=== PATIENT | male | born 1935 | race Caucasian/White ===

== ENCOUNTER 2016-09-06 07:42 | Day surgery (SDC) | payer OTHER ==
[2016-09-06] MEDS ORDERED: LIDOCAINE 1% 5 ML SDV ONE (08:46)
[2016-09-06] MEDS ORDERED: LIDOCAINE 1% 2 ML INJ ID PRN (09:01)
[2016-09-06] MEDS ORDERED: MIDAZOLAM 2 MG/2 ML VIAL ONE (09:06)
[2016-09-06] MEDS ORDERED: fentaNYL 100 MCG/2 ML INJ ONE (09:07)
[2016-09-06] MEDS ORDERED: PROPOFOL 200 MG/20 ML VIAL ONE (09:07)
[2016-09-06] MEDS ORDERED: LIDOCAINE 2% 5 ML SDV ONE (09:08)
[2016-09-06] MEDS ORDERED: LR 1,000 ML IV SCH (09:30)
[2016-09-06 09:32] LABS: INR 1.28 (0.83-1.16)
--- NOTE | 2016-09-06 10:24 | GPN ---
PROCEDURE: Esophagogastroduodenoscopy with Savary dilation of the esophagus. PREOPERATIVE DIAGNOSIS: Dysphagia in the setting of gastroesophageal reflux disease. POSTOPERATIVE DIAGNOSIS: Narrowing of the cervical esophageal passage consistent with stricture, di lated to 18 mm with Savary dilators. CLINICAL HISTORY/INDICATIONS: The patient is an 81-year-old gentleman with paroxysmal atrial fibril lation on chronic Coumadin therapy as well as hypertension, hyperlipidemia, and chronic GERD. He is set up for EGD today due to progressively more severe dysphagia to solids over the last 3 months. PERMIT: The patient was informed of the indications for this procedure, risks and benefits of the p rocedure, and IV general anesthesia outlined. Informed consent was obtained. PREOPERATIVE MEDICATIONS: IV general anesthesia per Dr. Reji Mota. PROCEDURE FINDINGS: GIF-180 video endoscope was inserted down into the oropharynx and was passed wi th moderate difficulty into the cervical esophagus due to angulation at the upper esophageal sphinct er and mild stricture. The scope could be passed with the aid of a guidewire into the esophagus. T he body of the esophagus and distal esophagus appeared normal. There was no evidence of distal esop hageal stricture. The cardia, fundus, body, and antrum of the stomach appeared normal, both on fron t view and retroflexed position of the instrument. Pyloric channel, duodenal bulb sweep were normal to the 2nd portion of the duodenum. The scope was slowly withdrawn into the stomach, and a Savary guidewire was placed into the antrum and retained as the scope was removed. Over this guidewire, a 15 mm and 18 mm Savary dilator was passed across the upper esophageal sphincter and lower esophageal sphincter. There was no resistance with the 15 mm dilator. There was mild resistance with the 18 mm dilator. There was no blood staining of the dilators on withdrawal. The patient tolerated the p rocedure well and was sent to the recovery room in satisfactory condition. IMPRESSION: 1. Dysphagia with narrowing of the upper esophageal sphincter/passage, dilated to 18 mm today. 2. No evidence of Conti esophagus or esophageal ulcers. 3. No evidence of distal esophageal stricture. RECOMMENDATIONS: 1. Continue omeprazole daily. 2. Anti-reflux lifestyle modifications chronically. 3. If the patient has no improvement of his dysphagia after this procedure, would then recommend tr iple phase cine esophagram to review for evidence of Zenker diverticulum or esophageal dysmotility. /[id number]/MODL
== END 2016-09-06 10:50 | disposition home health service (06) ==
LOC: FSGY 07:42
PROVIDERS: ATTEND Internal Medicine Gastroenterology
PROC: 0D718ZZ Dilation of Upper Esophagus, Via Natural or Artificial Opening Endoscopic (ICD-10-PCS; principal; 2016-09-06 09:00)
DX: K22.2 Esophageal obstruction (principal); R13.10 Dysphagia, unspecified; K21.9 Gastro-esophageal reflux disease without esophagitis
CPT/HCPCS: J2250; J2704; J3010

== ENCOUNTER → 2017-05-04 | Outpatient (CLI) | payer OTHER | LOC: FIMAGING 10:02 | PROVIDERS: ATTEND Internal Medicine Cardiovascular Disease | DX: I48.0 Paroxysmal atrial fibrillation (principal); I51.7 Cardiomegaly ==

== ENCOUNTER 2017-05-19 14:04 | Emergency (ER) | payer OTHER ==
[2017-05-19 14:10] VITALS: RESP 16; TEMP 97.9
--- NOTE | 2017-05-19 16:02 | EDPHY ---
H & P Stated Complaint: woke up with pain and swelling to right calf. Time Seen by Provider: 05/19/17 16:02 HPI/ROS: CHIEF COMPLAINT: Right calf pain HISTORY OF PRESENT ILLNESS: The patient presents to the ED with complaints of acute right calf pain that began earlier today. The patient has a history of atrial fibrillation and is currently anticoagulated. He recently had his Coumadin level adjusted. Patient denies any chest pain or shortness of breath. He denies any numbness or weakness. The patient denies known history of trauma. The patient denies any additional complaints such as fever, cough, congestion, abdominal pain, melena or difficulty breathing. The patient reports his pain is currently mild in nature. It was moderate earlier today. REVIEW OF SYSTEMS: A comprehensive 10 point review of systems is otherwise negative aside from elements mentioned in the history of present illness. Source: Patient - Personal History Current Tetanus Diphtheria and Acellular Pertussis (TDAP): Yes Tetanus Vaccine Date: less than 10 years - Medical/Surgical History Hx Asthma: Yes Hx Chronic Respiratory Disease: No Hx Diabetes: No Hx Cardiac Disease: Yes Hx Renal Disease: No Hx Cirrhosis: No Hx Alcoholism: No Hx HIV/AIDS: No Hx Splenectomy or Spleen Trauma: No Other PMH: Glaucoma, Afib, Hernia surgery, Cataract removal bilateral, Retinal repair bilateral, tonsillectomy, Hemorrhoidectomy - Social History Smoking Status: Former smoker - Physical Exam Exam: General Appearance: Alert, no distress Eyes: Pupils equal and round no pallor or injection ENT, Mouth: Mucous membranes moist Respiratory: There are no retractions, lungs are clear to auscultation Cardiovascular: Regular rate and rhythm Gastrointestinal: Abdomen is soft and nontender, no masses, bowel sounds normal Neurological: 5/5 strength all 4 extremities Skin: Warm and dry, no rashes Musculoskeletal: Normal range of motion noted bilateral lower extremities Extremities: Tenderness to palpation right calf, supple, no compartment syndrome, 2+ dorsalis pedis and posterior tibial pulse Constitutional: Initial Vital Signs Temperature (C) 36.6 C 05/19/17 14:05 Heart Rate 83 05/19/17 14:05 Respiratory Rate 16 05/19/17 14:05 Blood Pressure 127/83 H 05/19/17 14:05 O2 Sat (%) 95 05/19/17 14:05 O2 Delivery Mode Room Air Allergies/Adverse Reactions: Penicillins Allergy (Severe, Verified 09/02/16 13:48) LEP SWELLING/HIVES PEANUTS Allergy (Severe, Uncoded 03/19/11 15:36) Anaphylaxis Home Medications: Medication Instructions Recorded Albuterol [Proventil Inhaler HFA 1 - 2 puffs IH Q4H PRN 01/16/14 (*)] Atorvastatin Calcium [Lipitor 20 20 mg PO HS 01/16/14 mg (*)] Brimonidine/Timolol [Combigan (*)] 1 drop EACHEYE BID 01/16/14 EPINEPHrine [Epipen 0.3 MG] 0.3 mg IM ONCE PRN 01/16/14 Digoxin [Lanoxin 0.125 mg] 0.125 mg PO DAILY10 #30 tab 01/21/14 Warfarin Sodium [Coumadin 5MG (*)] 5 mg PO DAILY16 #30 tab 01/21/14 Mometasone Furoate Nasal [Nasonex] 1 sprays NASAL DAILY PRN 01/23/14 Herbals/Supplements -Info Only 09/02/16 Omeprazole 09/02/16 Medical Decision Making - Diagnostics Imaging Results: Imaging Impressions Extremity Venous Study 05/19/17 14:59 Impression: 1. There is no sonographic evidence of deep or superficial vein thrombosis in the right lower extremity. 2. There is a an 8.7 cm complex collection in the mid-calf, probably representing a localized hematoma (given the patient's history of anticoagulant therapy), however continued clinical correlation and follow-up are recommended. Findings were discussed with MDAHURI ROSEN MD at 16:17, on 05/19/2017. She will convey the information to Dr. Live Vasquez. ED Course/Re-evaluation: The patient presents to the ED for evaluation of atraumatic right calf pain. The patient was taken for an ultrasound which demonstrates no evidence of a DVT but does demonstrate a subcutaneous hematoma measuring 5 x 8 cm. The patient is noted to be neurologically intact. He has a 2+ dorsalis pedis and posterior tibial pulse. The patient has no clinical evidence of a compartment syndrome. The patient is INR is 3.4. The patient will be instructed to hold his next 2 doses of Coumadin. He should then resume at his regular dose. The patient should have an INR checked performed at 5 days. Differential Diagnosis: Differential diagnosis considered includes hematoma, DVT, arterial thrombosis, compartment syndrome, supratherapeutic anticoagulation - Data Points Laboratory Results: 05/19/17 14:26 PT 35.6 SEC H SEC (12.0-15.0) INR 3.49 H (0.83-1.16) Departure - Departure Disposition: Home, Routine, Self-Care Clinical Impression: Hematoma of right lower extremity Condition: Good Instructions: Contusion in Adults (ED) Additional Instructions: 1. Ice as needed. 2. Tylenol as needed for pain. 3. Return to the ED for markedly worsening pain, swelling, numbness or weakness as this may be the sign of a progressing hematoma and development of a acute surgical problem. 4. Your INR was elevated at 3.5. Please hold your next 2 doses of Coumadin. Please have your INR rechecked on Tuesday of next week. Referrals: ALDO WEISS [Primary Care Provider] - As per Instructions
[2017-05-19 16:42] LABS: INR 3.49 (0.83-1.16); PROTIME(PATIENT) 35.6 SEC (12.0-15.0)
[2017-05-19 17:21] VITALS: BP 116/85; PULSE 68; O2SAT 97
== END 2017-05-19 17:20 | disposition home or self-care (01) ==
DX: M79.81 Nontraumatic hematoma of soft tissue (principal); J45.909 Unspecified asthma, uncomplicated; Z79.01 Long term (current) use of anticoagulants; Z87.891 Personal history of nicotine dependence; Z91.010 Allergy to peanuts

== ENCOUNTER → 2017-06-30 | Outpatient (CLI) | payer OTHER | LOC: BHFA 09:30 | PROVIDERS: ATTEND Internal Medicine Cardiovascular Disease | DX: I48.91 Unspecified atrial fibrillation (principal); Z79.899 Other long term (current) drug therapy ==

== ENCOUNTER 2018-03-14 12:15 | Inpatient (IN) | payer OTHER ==
--- NOTE | 2018-03-30 01:30 | GHP ---
DATE OF ADMISSION: 04/25/2018 He will be an a.m. admission for surgery at [facility] on April 25, 2018. PROBLEM: Right knee severe degenerative arthritis. HISTORY OF PRESENT ILLNESS: The patient is an 82-year-old man admitted for a right total knee arthro plasty. He has been aware of progressive trouble in his knee for a long time. Twenty years ago, bridger morrison told him he was going to need a total knee replacement. He has gradually had more pain. His a ctivities are limited. It is painful to walk. He has had some cortisone injections over the last fe w years, but the benefit has been temporary. He is now having significant pain that is affecting his activities of daily living. He has failed nonsurgical treatment. PAST MEDICAL HISTORY: He has atrial fibrillation. He is chronically anticoagulated with Coumadin. He is also treated for elevated cholesterol. He has a history of esophageal stricture and has had se veral dilatations. He has known sleep apnea. He was recently prescribed a CPAP machine, but he has been unable to tolerate it. He notes nocturia and occasional urinary incontinence. He has atrial fi brillation but no known history of ischemic coronary artery disease. No history of hepatitis, DVT, M RSA staph infections, or bleeding problems. CURRENT MEDICATIONS: Coumadin 5 mg 5 days a week and 10 mg on Tuesday and Tuesday. He is on atorvast atin 10 mg per day for cholesterol. Amiodarone 200 mg per day. He uses Combigan eyedrops for glauco ma. DRUG ALLERGIES: He states that he is allergic to penicillin. He developed a hives reaction 60 years ago. He is also allergic to peanuts. Metal allergy: None. Latex allergy: None. SOCIAL HISTORY: The patient is . He is retired. He does not smoke cigarettes and occasional ly drinks alcohol. PHYSICAL EXAMINATION: GENERAL: He is a tall, thin, alert, healthy-appearing elderly man. Height 6 feet 4 inches. Weight 180 pounds. BMI 21.9. EYES: Conjunctivae and sclerae are clear. Pupils are round and reactive. MOUTH: Good oral hygiene. No loose teeth. CHEST: Clear. HEART: Irregular rhythm. EXTREMITIES: Pertinent findings are limited to his right knee. He has a 5-degree flexion c ontracture and further flexion to 120 degrees. He has a small effusion. There are palpable osteophy maryjane along the medial border of the knee. He has mild pseudolaxity of his medial collateral ligament, but his ligaments are otherwise stable. IMAGING: Films show severe medial compartment degenerative arthritis. He is bone on bone. His femu r is subluxed medially on the tibial plateau. Varus alignment is present. IMPRESSION ON ADMISSION: 1. Right knee advanced medial compartment degenerative arthritis with varus deformity. He is prepar ed for right total knee arthroplasty. 2. Atrial fibrillation. He is on Coumadin. 3. Treatment for glaucoma. 4. Treatment for elevated cholesterol. 5. History of esophageal stricture. 6. History of nocturia and occasional urinary incontinence. 7. Known sleep apnea. PLAN: He will undergo a right total knee arthroplasty using the Graeme robot. The surgery has been de scribed to him, including the risks, complications, expectations, and recovery time. I have stressed the importance of postoperative physical therapy. I have advised him that approximately 85% of peop le get a very good result with a total knee replacement, but a small percentage of people do not. He is also at risk for medical problems such as heart attack, stroke, or pneumonia. He will stop his Coumadin 5 days before surgery. I will resume it after surgery. All his questions have been answered, and he consents to surgery. /[id number]/MODL
[2018-04-25] MEDS ORDERED: TRANEXAMIC ACID 3,000 MG in NS (SYRINGE) 50 ML IRR ONE (06:00)
[2018-04-25] MEDS ORDERED: TRANEXAMIC ACID 1,000 MG in NS 100 ML IV ONE (06:00)
[2018-04-25] MEDS ORDERED: POVIDONE-IODINE 20 ML in SODIUM CL IRRIG SOLUTION 500 ML IRR ONE (06:00)
[2018-04-25] MEDS ORDERED: ROPIVACAINE 0.2% 80 MG, EPINEPHrine 0.2 MG, KETOROLAC TROMETHAMINE 30 MG in SYRINGE 0 ML IU ONE (06:00)
[2018-04-25] MEDS ORDERED: GABAPENTIN 300 MG CAP PO ONE (06:20)
[2018-04-25] MEDS ORDERED: ceFAZolin 2 GM/DEXTROSE 100 ML IV ONE (06:20)
[2018-04-25] MEDS ORDERED: ACETAMINOPHEN 325 MG TAB PO ONE (06:20)
[2018-04-25] MEDS ORDERED: DEXAMETHASONE 4 MG/ML VIAL IVP ONE (06:20)
[2018-04-25] MEDS ORDERED: FAMOTIDINE 20 MG TAB PO ONE (06:20)
[2018-04-25] MEDS ORDERED: ONDANSETRON 4 MG/2 ML VIAL IVP ONE (06:20)
[2018-04-25] MEDS ORDERED: LIDOCAINE 1% 2 ML INJ ID PRN (06:22)
[2018-04-25] MEDS ORDERED: LR 1,000 ML IV ONE (06:22)
[2018-04-25] MEDS ORDERED: VANCOMYCIN 1 GM VIAL ONE (06:51)
[2018-04-25] MEDS ORDERED: ceFAZolin 1 GM/5 ML SYR ONE (06:52)
[2018-04-25] MEDS ORDERED: TRANEXAMIC ACID 3,000 MG/50 ML BAG IRR ONE (06:56)
[2018-04-25] MEDS ORDERED: TRANEXAMIC ACID 1,000 MG/10 ML VIAL ONE (06:56)
[2018-04-25] MEDS ORDERED: MIDAZOLAM 2 MG/2 ML VIAL ONE (07:00)
[2018-04-25] MEDS ORDERED: MIDAZOLAM 2 MG/2 ML VIAL IVP ONE (07:07)
[2018-04-25 07:15] LABS: INR 1.33 (0.83-1.16); PROTIME(PATIENT) 16.7 SEC (12.0-15.0)
[2018-04-25] MEDS ORDERED: PROPOFOL/EMULSION 500 MG/50 ML BOTTLE IV ONE (07:16)
[2018-04-25] MEDS ORDERED: fentaNYL 100 MCG/2 ML INJ ONE (07:16)
--- NOTE | 2018-04-25 07:17 | PDHPUP ---
History & Physical Update H&P update statement: This history and physical update is based on an assessment of the patient which was completed after admission or registration (within 24 hours), but prior to the surgery/procedure. H&P update: H&P reviewed & patient examined
[2018-04-25] MEDS ORDERED: DEXAMETHASONE 4 MG/ML VIAL ONE (07:58)
[2018-04-25] MEDS ORDERED: NALOXONE HCL 0.4 MG/ML INJ IVP PRN (09:35)
[2018-04-25] MEDS ORDERED: fentaNYL 100 MCG/2 ML INJ IVP PRN (09:35)
[2018-04-25] MEDS ORDERED: HYDROCODONE/APAP 5/325 TAB PO PRN (09:35)
[2018-04-25] MEDS ORDERED: ONDANSETRON 4 MG/2 ML VIAL IVP PRN ×2 (09:35→09:53)
[2018-04-25] MEDS ORDERED: HYDROmorphONE/DILAUDID 2 MG/ML INJ IVP PRN (09:35)
--- NOTE | 2018-04-25 09:39 | POSTOPPROG ---
Post Op Note Date of Operation: 04/25/18 Surgeon: Jose Boyce Tallier: Vahe Anesthesiologist: Celina Anesthesia: IV Sedation, Spinal Post-op Diagnosis: right knee arthritis Procedure: R TKA Inf/Abcess present in the surg proc area at time of surgery?: No EBL: 100-500 (ACB in PACU)
[2018-04-25] MEDS ORDERED: HYOSCYAMINE SULFATE 0.125 MG TAB PO PRN (09:51)
[2018-04-25] MEDS ORDERED: Epinephrine [Epipen 0.3 Mg] 0.3 MG IM PRN (09:51)
[2018-04-25] MEDS ORDERED: ALBUTEROL 60 PUFFS/8 GM MDI IH PRN (09:51)
[2018-04-25] MEDS ORDERED: NASONEX EACHNARE PRN (09:51)
[2018-04-25] MEDS ORDERED: LACTULOSE 20 GM/30 ML UDCUP PO PRN (09:53)
[2018-04-25] MEDS ORDERED: BISACODYL 10 MG SUPP PR PRN (09:53)
[2018-04-25] MEDS ORDERED: POLYETHYLENE GLYCOL 3350 17 GM PKT PO PRN (09:53)
[2018-04-25] MEDS ORDERED: ONDANSETRON DISINTEGRATING 4 MG TAB PO PRN (09:53)
[2018-04-25] MEDS ORDERED: MAGNESIUM HYDROXIDE 30 ML UDCUP PO PRN (09:53)
[2018-04-25] MEDS ORDERED: PROMETHAZINE HCL 25 MG SUPPR PR PRN (09:53)
[2018-04-25] MEDS ORDERED: TEMAZEPAM 15 MG CAP PO PRN (09:53)
[2018-04-25] MEDS ORDERED: NS 500 ML IV PRN (09:53)
[2018-04-25] MEDS ORDERED: PROMETHAZINE HCL 25 MG/ML INJ IVP PRN (09:53)
[2018-04-25] MEDS ORDERED: diphenhydrAMINE 25 MG CAP PO PRN (09:53)
[2018-04-25] MEDS ORDERED: DIPHENOXYLATE/ATROPINE LOMOTIL 1 TAB PO PRN (09:53)
[2018-04-25] MEDS ORDERED: METOCLOPRAMIDE 10 MG/2 ML VIAL IVP PRN (09:53)
[2018-04-25] MEDS ORDERED: oxyCODONE IR 5 MG TAB PO PRN (09:53)
[2018-04-25] MEDS ORDERED: LR 1,000 ML IV SCH (10:00)
--- NOTE | 2018-04-25 10:30 | GOP ---
DATE OF OPERATION: 04/25/2018 SURGEON: Jose Boyce MD MASTER STEAM YACHT: [place]ner[place] and Carlos Crowe. ANESTHESIA: A combination of Marcaine, spinal, IV sedation, and adductor canal block. ANESTHESIOLOGIST: Dr. Patrick. PREOPERATIVE DIAGNOSIS: Right knee severe degenerative arthritis with varus deformity. POSTOPERATIVE DIAGNOSIS: Right knee severe degenerative arthritis with varus deformity. PROCEDURE PERFORMED: Right total knee arthroplasty, Graeme robot assisted, uncemented, [place] Triathlon prosthesis. FINDINGS: DESCRIPTION OF PROCEDURE: The patient was given 2 g of preoperative Ancef within 60 minutes of surgery. He also received IV tranexamic acid at a dose of 1000 mg. He was placed on the operating room table and given spinal anesthesia with Marcaine by Dr. Patrick. He was then placed supine and given IV sedation. A Vera catheter was not used. He wore a stocking and SCD on the nonoperative leg. His right lower extremity was prepped with ChloraPrep from the upper thigh tourniquet to the tips of the toes. It was draped free using sterile sheets, stockinette, and Ioban plastic adhesive drape. The lower leg was wrapped with compressive Coban. The World Health Organization time-out was performed to verify the correct patient identity and the correct surgical side and site. The [place] time-out was also performed. The [employer] leg holding device was sterilely attached to the operating room table and used throughout the procedure to help position the knee. Two 3 mm partially threaded pins were inserted in a bicortical fashion on the anteromedial cortex of the tibia about 4-5 inches distal to the tibial tubercle. At this point, the leg was exsanguinated with a 6-inch compressive wrap and the tourniquet was inflated to 250 mmHg. A straight midline incision was made centered on the patella. Subcutaneous tissues were sharply divided, and hemostasis was obtained using electrocautery. A medial subcutaneous flap was developed and the capsule and synovium were opened in a medial parapatellar fashion. Extensive degenerative changes were present in all 3 compartments, particularly in the medial compartment, which was eroded down to subchondral bone. His medial capsule and periosteum were lightly elevated off the rim of the medial tibial plateau all the way around to the posteromedial corner. Two 3 mm partially threaded pins were inserted in bicortical fashion in the medial aspect of the distal femur in the supracondylar region. The femoral checkpoint was inserted just anterior and slightly distal to the 2 pins. The tibial check point was inserted in the anteromedial cortex of the proximal tibia about an inch distal to the joint line. The arrays were attached to the femur and tibia. I confirmed that the arrays were visualized by the computer. In order to improve exposure, the patella was prepared first. The original thickness of the patella was measured. Peripheral osteophytes were removed. I cut a flat surface on the back of the patella. The patella was sized for a 40 mm asymmetric patella with 11 mm thickness. I removed enough bone from the patella, such that the remaining bone, plus the thickness of the patellar component recreated the original thickness of the patella. The composite thickness was 26 mm. The bony anatomy of the knee was registered, starting with the center of rotation of the femoral head, followed by the medial and lateral malleoli. The femoral and tibial anatomy were registered. I removed osteophytes from the rim of the medial and lateral femoral condyles. I then performed dynamic joint balancing. As expected, he was tight medially. The preoperative plan called for a size 7 femur and a size 7 or 8 tibia with a 9 mm insert. In order to achieve proper gap balancing, I externally rotated the femur an additional 4 degrees. I also shifted the femoral component anteriorly 1 mm. I was able to achieve 18 mm medial and lateral gaps in full extension and 90 degrees of flexion. The femoral component was set up in 5 degrees of flexion. The robotic controlled saw was brought in. The robot was registered and the soft blade was registered. The distal femoral cut was made, followed by the posterior chamfer, the anterior cut, and the anterior chamfer. The robotic arm was then used to make the proximal tibial cut. The posterior compartment was cleared of meniscal remnants. Osteophytes were removed from the back of the femoral condyles. 40 mL of the joint anesthetic cocktail was injected into the posterior capsule, the periarticular structures, and the subcutaneous tissues along the skin edges. I used the appropriate jig to create the notch in the femur with the power saw and osteotome in order to accommodate the posterior stabilized femoral component. The size 7 femoral component was applied. The cuts were accurate. The tibia was sized for a size 7 component. I did a trial reduction with all the trial components in place, including the 9 mm tibial insert. The knee came to full extension and flexed to 135 degrees. The collateral ligaments were stable in full extension and 90 degrees of flexion. The computer was reading 18 mm of medial and lateral gaps in full extension and 90 degrees of flexion. The fin punched the tibial component. The bone quality was excellent and the cuts were very accurate. I felt he was very suitable for press-fit components. The [place] Triathlon press-fit femur was applied and tapped securely into place. It was a very tight fit. The size 7 press-fit femur was applied and tapped securely into place. It was very tight. The 40 mm asymmetric patella was applied, clamped, and tightened. Patellar tracking was checked. It was excellent without any digital pressure. The tourniquet was deflated and the total tourniquet time was 1 hour and 21 minutes. The knee was thoroghly irrigated with a dilute betadine solution. I instilled 50 cc of tranexamic acid solution into the knee joint. The knee was packed with a lap and then wrapped with a 6-inch Wade bandage for 3 or 4 minutes. The vastus medialis portion of the extensor mechanism was repaired with several interrupted [id number] #2 FiberWire sutures. Prior to closure, the threaded pins were removed from the tibia and the femur. The femoral and tibial check points were removed. The capsule and synovium were closed first with multiple interrupted [id number] 0 PDS sutures, followed by a running # 2 barbed Ethicon Stratafix PDO suture. Subcutaneous tissues were closed with a running 0 barbed Ethicon Stratafix MonoDerm suture. The skin was closed with a running 3-0 barbed Ethicon Stratafix MonoDerm subcuticular suture. The skin was sealed with half-inch Steri-Strips. The wound was covered with a large Mepilex sterile waterproof surgical dressing. The knee was wrapped with a 6- inch compressive wrap. A long-leg JUSTIN stocking and SCD were applied, followed by the cooling device. I used a size 7 Arjun Triathlon posterior stabilized press-fit femoral component, a size 7 cemented tibial base plate, press-fit, and a 9 mm posterior stabilized tibial insert with a 40 mm press-fit asymmetric metal-backed patellar component. The sponge and needle count were correct on 2 occasions. He was awakened from anesthesia, [facility], and taken to PACU in satisfactory condition. There were no recognized intraoperative complications. In the PACU for additional postoperative pain control, Dr. Patrick performed an adductor canal block with an indwelling catheter. Carlos Crowe and [place] C[place]ner[place] acted as surgical assistants. Their assistance was a medical necessity for safe completion of the procedure. /[id number]/MODL MTDD
--- NOTE | 2018-04-25 10:46 | PDMN ---
Medical Necessity Medical [place] [facility] [place], Total: 82 yo sp R TKA w/ hx afib , chronically anticoagulated w/ Coumadin, elevated cholesterol, esophageal stricture w/ several dilations, sleep apnea, CAD. Admit to IP status per MD order.
[2018-04-25] MEDS: ACETAMINOPHEN 325 MG TAB PO SCH ×2 (13:15→18:03)
[2018-04-25] MEDS: traMADol 50 MG TAB PO PRN (14:39)
[2018-04-25] MEDS: ceFAZolin 2 GM/DEXTROSE 100 ML IV SCH ×2 (15:39→21:58)
[2018-04-25] MEDS ORDERED: WARFARIN SODIUM 2.5 MG TAB PO ONE (16:00)
[2018-04-25] MEDS: FAMOTIDINE 20 MG TAB PO SCH (21:58)
[2018-04-25] MEDS: SENNOSIDES/DOCUSATE SODIUM TAB PO SCH (21:58)
[2018-04-25] MEDS: BRIMONIDINE/TIMOLOL 5 ML OPHT.BTL EACHEYE SCH (22:44)
[2018-04-25] MEDS: CLINDAMYCIN PHOSPHATE TP SCH (22:45)
[2018-04-26] MEDS: ACETAMINOPHEN 325 MG TAB PO SCH ×3 (01:53→11:53)
[2018-04-26] MEDS: FAMOTIDINE 20 MG TAB PO SCH (08:34)
[2018-04-26] MEDS: SENNOSIDES/DOCUSATE SODIUM TAB PO SCH (08:34)
[2018-04-26] MEDS ORDERED: PANTOPRAZOLE SODIUM 40 MG TAB PO SCH (09:00)
[2018-04-26] MEDS ORDERED: FERROUS SULFATE 140 MG TAB.ER PO SCH (09:00)
[2018-04-26] MEDS ORDERED: WARFARIN SODIUM 5 MG TAB PO SCH (09:00)
[2018-04-26] MEDS ORDERED: AMIODARONE HCL 200 MG TAB PO SCH (09:00)
[2018-04-26] MEDS ORDERED: RIVAROXABAN 10 MG TAB PO SCH (09:00)
[2018-04-26] MEDS ORDERED: ATORVASTATIN CALCIUM 10 MG TAB PO SCH (09:00)
--- NOTE | 2018-04-26 09:30 | SOAPPROG ---
SOAP Progress Note Assessment/Plan: Assessment: Afebrile. Mild pain so far. Has been up and walking in [place]. H/H is good. Needed cath x2, but voiding spont. now. Films look good. Dsg is dry. Plan:DC later today. PT for stairs. Xarelto for 3 day at home for bridge therapy. Resume coumadin. Home PT. 04/26/18 09:29 Objective: Vital Signs Temp Pulse Resp BP Pulse Ox 36.4 C 55 L 16 131/77 H 96 04/26/18 07:30 04/26/18 07:30 04/26/18 07:30 04/26/18 07:30 04/26/18 07:30 Laboratory Results 04/26/18 04:36 04/25/18 04/26/18 04/27/18 05:59 05:59 05:59 Intake Total 2620 200 Output Total 1875 Balance 745 200 PT 16.7 SEC (12.0-15.0) H 04/25/18 06:45 INR 1.33 (0.83-1.16) H 04/25/18 06:45 ICD10 Worksheet Patient Problems: Problems Problem Status Onset Osteoarthritis of left knee Acute Atrial fibrillation Acute
--- NOTE | 2018-04-26 09:35 | PDIAF ---
- Diagnosis Diagnosis: Left knee OA Code Status: Full Code - Medication Management Discharge Medications: Medications to Continue on Transfer Albuterol [Proventil Inhaler HFA (*)] 1 - 2 puffs IH Q4H PRN 01/16/14 [Last Taken 08/11/15] Brimonidine/Timolol [Combigan (*)] 1 drop EACHEYE BID 01/16/14 [Last Taken 04/25] EPINEPHrine [Epipen 0.3 MG] 0.3 mg IM PRN PRN 01/16/14 [Last Taken Unknown] Amiodarone HCl [Pacerone (*)] 200 mg PO DAILY 03/14/18 [Last Taken 1 Day Ago ~] Atorvastatin Calcium [Lipitor 10 mg (*)] 10 mg PO DAILY 03/14/18 [Last Taken 1 Day Ago ~04/24/18] Clindamycin Phosphate [Clindamycin Top Solution] 30 ml TP BID 03/14/18 [Last Taken Unknown] Hyoscyamine Sulfate [Levsin, Hyomax-Sl 0.125 mg (*)] 0.125 mg PO TID PRN [Last Taken Unknown] Nasonex 1 spray EACHNARE DAILY PRN 03/14/18 [Last Taken Unknown] Omeprazole 40 mg PO DAILY 03/14/18 [Last Taken 2 Weeks Ago ~04/11/18] Warfarin Sodium [Coumadin 5MG (*)] 5 mg PO MOTUWEFRSA 03/14/18 [Last Taken 04/18] Warfarin Sodium [Coumadin 5MG (*)] 10 mg PO SUTH 03/14/18 [Last Taken Unknown] Acetaminophen [Tylenol 325mg (*)] 650 mg PO Q6HRS tab 04/26/18 [Last Taken Unknown] Ferrous Sulfate [Slow Fe 140 MG (*)] 140 mg PO DAILY tab.er 04/26/18 [Last Taken Unknown] Ondansetron Odt [Zofran Odt 4 mg (*)] 4 mg PO Q4HRS PRN tab 04/26/18 [Last Taken Unknown] Rivaroxaban [Xarelto 10mg (*)] 10 mg PO DAILY #3 tab 04/26/18 [Last Taken Unknown] Sennosides/Docusate Sodium [Senokot-S] 1 - 2 tab PO BID tab 10/17/18 [Last Taken Unknown] celeCOXIB [Celebrex (*)] 200 mg PO DAILY cap 04/26/18 [Last Taken Unknown] oxyCODONE IR [Oxycodone Ir (*)] 5 - 10 mg PO Q3HRS PRN tab 04/26/18 [Last Taken Unknown] traMADol [Ultram 50 mg (*)] 50 mg PO Q6HRS PRN tab 04/26/18 [Last Taken Unknown ] Discharge Medications: Refer to the Discharge Home Medication list for PRN reason. PICC Care - Routine: N/A - Orders Services needed: Home Care, Physical Therapy Home Care Face to Face: I certify that this patient was under my care and that I had the required [id number] encounter meeting the encounter requirements on the discharge day. My findings support the fact that the patient is homebound as defined in Home Care Face to Face Continued: [facility] Chapter 7 Medicare Benefits Manual 30.1.1 , The condition of the patient is such that there exists a normal inability to leave home and consequently, leaving home would require a considerable and taxing effort. Isolation Type: None Diet Recommendation: no restrictions on diet Diet Texture: Regular Texture Diet Vera: Not applicable Raymundo Stockings Discontinue Date: 1 week Wound Care Instructions: keep clean and dry. You may shower. Activity/Weight Bearing Restrictions: as tolerated. Equipment: Zero knee while in bed as tolerated. - Follow Up Care Current Providers and Referrals: ALDO WEISS [Primary Care Provider] - Jose Boyce MD [Medical Doctor] - 05/04/18
[2018-04-26] MEDS: BRIMONIDINE/TIMOLOL 5 ML OPHT.BTL EACHEYE SCH (09:38)
[2018-04-26] MEDS: CLINDAMYCIN PHOSPHATE TP SCH (09:38)
--- NOTE | 2018-04-26 09:50 | GDS ---
ADMISSION DIAGNOSIS: Right knee severe degenerative arthritis. POSTOPERATIVE DIAGNOSIS: Right knee severe degenerative arthritis. OPERATION PERFORMED: April 25, 2018, right knee Graeme robot-assisted total knee arthroplasty. POSTOPERATIVE COMPLICATIONS: None. CONDITION ON DISCHARGE: Improved. DESCRIPTION OF HOSPITAL COURSE: The patient was admitted to the hospital on the morning of surgery. His admission CBC was normal. BUN and creatinine were 1.0 and 25. The same day, under a combinatio n of Marcaine, spinal, IV sedation, and adductor canal block, he underwent a Graeme robot-assisted righ t total knee arthroplasty. Postoperatively, he was treated with multimodal DVT prophylaxis, includin g Xarelto and Coumadin. He has atrial fibrillation and was on Coumadin preoperatively. On the first postoperative day, his hemoglobin and hematocrit were 13.1 and 39.6. He required urinary catheteriz ation 2 times postoperatively but eventually was able to void spontaneously. He was seen by Physical Therapy and made good progress with ambulation and with stairs. By the time of discharge, he was af ebrile and his wound was clean and dry. DISPOSITION: The patient is discharged to his home. He will have home physical therapy. He will ta ke Xarelto 10 mg a day for 3 days at home. He will resume his normal dose of Coumadin. He has stacey fields made arrangements for followup to check his INR with Dr. Landa's office. He has prescriptions for oxycodone, tramadol, and Celebrex for pain. I will see him back in the office on May 01 8. If there are any problems, he is to call me. Continue JUSTIN stockings for 1 week. He may progress to full weightbearing as tolerated on the right. Copy requested to: Dr. Leonardo Landa [facility] /[id number]/MODL
--- NOTE | 2018-04-26 09:54 | ASMTLACE ---
LACE Length of stay for Answers: Less than 1 day current admission Acuity / Level of Answers: Yes Care: Did the patient have an inpatient admission? Comorbidities - select Answers: Opioid dependence all that apply / Chronic pain Other Notes: AFib; Asthma # of Emergency department Answers: 0 visits in the last 6 months Score: 8 Date Signed: 04/26/2018 09:52 AM Electronically Signed By:Brianne Campo RN
--- NOTE | 2018-04-26 10:02 | ASMTDCNOTE ---
Case Management Discharge Discharge Order Complete? Answers: Yes Patient to Obtain Answers: Independently Medications Transportation Arranged Answers: Family/Friends Faxed Final Orders Answers: Yes Family Notified Answers: Yes Discharge Comments Notes: Patient discharged home with family. Home PT with [facility]. No other needs identified. Date Signed: 04/26/2018 10:01 AM Electronically Signed By:Brianne Campo RN
[2018-04-26] MEDS ORDERED: LIPID EMULSION 20% 100 ML IV PRN (11:20)
[2018-04-26 12:02] VITALS: BP 113/79
--- NOTE | 2018-04-26 12:19 | PDPAINCON ---
Pain Management Consultation Patient referred by : Austen - Subjective Pain at rest (/10): 0 Pain with activity (/10): 3 Pain is: low, well controlled - Objective Technique: continuous peripheral nerve block Site: femoral Catheter site: clean, dry, intact, no erythema/edema/exudate Sensory and motor exam: consistent with block Vital signs: stable - Assessment/Plan Assessment/Plan: pain well-controlled, continue current mgmt (Bolused 0.5% Ropivicaine 20cc, negative aspiration, no complications, subsequently removed catheter)
[2018-04-26] MEDS: traMADol 50 MG TAB PO PRN (14:02)
--- NOTE | 2018-04-27 13:30 | ASDISCHSUM ---
Discharge Information Plan Status: Medically Cleared to Leave: Discharge Date:04/26/2018 02:49 PM D/C Disposition: ADT D/C Disposition:[id number] Projected Discharge Date:04/26/2018 11:00 AM Transportation at D/C: Discharge Delay Reason: Follow-Up Date:04/26/2018 11:00 AM Discharge Slot: Final Diagnosis: Placement Information Referral Type:*Home Health Care Services Referral ID:[id number] Provider Name:[facility] Address 1:[address] Address 2: City:[place] Selection Factors: State:[place] Patient Contact Information Contact Name:SHERWIN Relationship: Address:[address] Work Phone: City:[place] Alternate Phone: State/Zip Code:[place] [address] Email: Financial Information Financial Class:Medicare Primary Plan Desc:MEDICARE INPATIENT Primary Plan Number:[id number] Secondary Plan Desc:LEONEL CHARBEL PPO Secondary Plan Number:[id number] Assessment Information LACE LACE Length of stay for Answers: Less than 1 day current admission Acuity / Level of Answers: Yes Care: Did the patient have an inpatient admission? Comorbidities - select Answers: Opioid dependence all that apply / Chronic pain Other Notes: AFib; Asthma # of Emergency department Answers: 0 visits in the last 6 months Score: 8 Date Signed: 04/26/2018 09:52 AM Electronically Signed By:Brianne Campo RN Case Management Discharge Plan Note Case Management Discharge Discharge Order Complete? Answers: Yes Patient to Obtain Answers: Independently Medications Transportation Arranged Answers: Family/Friends Faxed Final Orders Answers: Yes Family Notified Answers: Yes Discharge Comments Notes: Patient discharged home with family. Home PT with [facility]. No other needs identified. Date Signed: 04/26/2018 10:01 AM Electronically Signed By:Brianne Campo RN Intervention Information Intervention Type:*Incorrect Registration Date of Service:04/25/2018 10:38 AM Patient Type:Observation Staff Member:Pinky Fall Hours: Discipline: Severity: Comment:
--- NOTE | 2018-05-01 07:00 | POSTANESTH ---
Post Anesthetic Evaluation Cardiovascular Status: Normal, Stable Respiratory Status: Normal, Stable Level of Consciousness/Mental Status: Can Participate in Eval Pain Control: Adequate, Prn Tx Ordered Nausea/Vomiting Control: Adequate, Prn Tx Ordered Complications Possibly Related to Anesthesia: None Noted
== END 2018-04-26 14:49 | disposition home health service (06) | DRG 470 ==
LOC: F3N 04-25 06:28 → OBSVTOIN 04-25 10:04 → F3N 04-25 11:21
PROVIDERS: ADMIT Orthopaedic Surgery; ATTEND Orthopaedic Surgery
PROC: 8E0YXCZ Robotic Assisted Procedure of Lower Extremity (ICD-10-PCS; principal; 2018-04-25 07:15)
PROC: 0SRC0JA Replacement of Right Knee Joint with Synthetic Substitute, Uncemented, Open Approach (ICD-10-PCS; principal; 2018-04-25 07:15)
DX: M17.11 Unilateral primary osteoarthritis, right knee (principal); I48.91 Unspecified atrial fibrillation; E78.00 Pure hypercholesterolemia, unspecified; G47.30 Sleep apnea, unspecified; Z79.01 Long term (current) use of anticoagulants; Z88.0 Allergy status to penicillin; Z91.010 Allergy to peanuts; Z91.040 Latex allergy status; Z91.048 Other nonmedicinal substance allergy status
CPT/HCPCS: 97110-GP; 97116-GP; 97162-GP; 97166-GO; 97530-GP; G8978-GP-CJ; G8979-GP-CI; G8980-GP-CI; G8987-GO-CI; G8988-GO-CI; G8989-GO-CI; J0171; J0690; J1100; J1885; J2250; J2405; J2704; J2795; J3010; J3370

== ENCOUNTER → 2018-04-13 | Outpatient (CLI) | payer OTHER | LOC: FIMAGING 10:08 | PROVIDERS: ATTEND Internal Medicine Cardiovascular Disease | DX: I70.0 Atherosclerosis of aorta (principal); J84.10 Pulmonary fibrosis, unspecified ==

== ENCOUNTER 2018-08-11 07:40 | Day surgery (SDC) | payer OTHER ==
[2018-08-11] MEDS ORDERED: MIDAZOLAM 2 MG/2 ML VIAL IVP ONE (07:44)
[2018-08-11] MEDS ORDERED: BENZOCAINE UNIT DOSE SPRAY HURRICAINE MM ONE (07:44)
[2018-08-11] MEDS ORDERED: fentaNYL 100 MCG/2 ML INJ IVP ONE (07:44)
[2018-08-11] MEDS ORDERED: ATROPINE SULFATE 1 MG/10 ML SYR IVP ONE (07:44)
[2018-08-11] MEDS ORDERED: NS 500 ML IV ONE (07:44)
[2018-08-11 08:26] LABS: INR 2.18 (0.83-1.16); PROTIME(PATIENT) 24.3 SEC (12.0-15.0)
--- NOTE | 2018-08-11 09:09 | PDHPUP ---
History & Physical Update H&P update statement: This history and physical update is based on an assessment of the patient which was completed after admission or registration (within 24 hours), but prior to the surgery/procedure. H&P update: H&P reviewed & patient examined, no change in patient's condition since H&P completed
--- NOTE | 2018-08-11 09:16 | POSTANESTH ---
Post Anesthetic Evaluation Cardiovascular Status: Normal, Stable Respiratory Status: Normal, Stable Level of Consciousness/Mental Status: Can Participate in Eval, Moderately Sleepy Pain Control: Adequate, Prn Tx Ordered Nausea/Vomiting Control: Adequate, Prn Tx Ordered Complications Possibly Related to Anesthesia: None Noted
[2018-08-11] MEDS ORDERED: PROPOFOL 200 MG/20 ML VIAL ONE (09:18)
[2018-08-11] MEDS ORDERED: LIDOCAINE 1% 5 ML SDV ONE (09:18)
--- NOTE | 2018-08-11 09:18 | PDANEPAE ---
ANE History of Present Illness 83 yo male with A-fib for RAMONE/CV. ANE Past Medical History - Cardiovascular History Hx Hypertension: No Hx Arrhythmias: Yes Hx Chest Pain: No Hx Coronary Artery / Peripheral Vascular Disease: Yes Hx CHF / Valvular Disease: Yes Hx Palpitations: Yes Cardiovascular History Comment: Afib-cardioversion, digoxin. Benign mitral valve prolapse. HLD - Pulmonary History Hx COPD: No Hx Asthma/Reactive Airway Disease: Yes Hx Recent Upper Respiratory Infection: No Hx Oxygen in Use at Home: No Hx Sleep Apnea: Yes Pulmonary History Comment: Rare episodes of asthma-inhaler as needed. - Neurologic History Hx Cerebrovascular Accident: No Hx Seizures: No Hx Dementia: No - Endocrine History Hx Diabetes: No Hypothyroid: No Hyperthyroid: No Obesity: no - Renal History Hx Renal Disorders: Yes Renal History Comment: Scrotal varicocele. Frequent urination and incontinence. - Liver History Hx Hepatic Disorders: No - Neurological & Psychiatric Hx Hx Neurological and Psychiatric Disorders: No - Cancer History Hx Cancer: No - Congenital Disorder History Hx Congenital Disorders: No - GI History Hx Gastrointestinal Disorders: No Gastrointestinal History Comment: Esophageal stricture dilated in 1999. Still has swallowing difficulties. GERD WITH COUGH - Other Health History Other Health History: Glaucoma both eyes. Scalp acne. Diffuse arthritis. 01/2015- heparin SQ-large abd hematoma & into scrotum. RETINAL DISORDER. ARTHRITIS - Chronic Pain History Chronic Pain: Yes (R knee.) - Surgical History Prior Surgeries: 2010-hemorrhoid repair. 1987-bilateral cataracts. 1977- bilateral detached retinal surg. CARDIC CATH 2013. RAMONE CARDIOVERSION 2013. HERNIA 2015. DISPHASIA WITH BALLON 20 YRS AGO ANE Review of Systems Review of Systems: - Systems Constitutional: Reports: no symptoms Cardiac: Reports: palpitations Gastrointestinal: Reports: no symptoms ANE Patient History - Allergies Allergies/Adverse Reactions: Penicillins Allergy (Severe, Verified 03/14/18 17:05) LIP SWELLING/HIVES peanut Allergy (Verified 03/14/18 17:05) Throat closes - Home Medications Home Medications: Albuterol [Proventil Inhaler HFA (*)] 1 - 2 puffs IH Q4H PRN 01/16/14 [Last Taken 08/11/15] Brimonidine/Timolol [Combigan (*)] 1 drop EACHEYE BID 01/16/14 [Last Taken 08/11 06:00] EPINEPHrine [Epipen 0.3 MG] 0.3 mg IM PRN PRN 01/16/14 [Last Taken Unknown] Amiodarone HCl [Pacerone (*)] 200 mg PO DAILY 03/14/18 [Last Taken 08/10/18 22: 00] Atorvastatin Calcium [Lipitor 10 mg (*)] 10 mg PO DAILY 03/14/18 [Last Taken 22:00] Clindamycin Phosphate [Clindamycin Top Solution] 30 ml TP BID 03/14/18 [Last Taken Unknown] Hyoscyamine Sulfate [Levsin, Hyomax-Sl 0.125 mg (*)] 0.125 mg PO TID PRN [Last Taken Unknown] Nasonex 1 spray EACHNARE DAILY PRN 03/14/18 [Last Taken Unknown] Warfarin Sodium 3 mg PO DAILY 08/11/18 [Last Taken 08/10/18 17:00] - NPO status NPO Status: no food or drink >8 hours - Anes Hx Anes Hx: no prior problems - Smoking Hx Smoking Status: Former smoker - Family Anes Hx Family Anes Hx: neg - N/A Family Hx Anesthesia Complications: none ANE Labs/Vital Signs - Labs Result Diagrams: 08/11/18 08:14 - Vital Signs Vital Signs: reviewed preoperatively; see RN documention for details Height: 193 cm Weight: 81.6 kg ANE Physical Exam - Airway Neck exam: FROM Mallampati Score: Class 2 - Pulmonary Pulmonary: clear to auscultation - Cardiovascular Cardiovascular: irregularly irregular - ASA Status ASA Status: III ANE Anesthesia Plan Anesthesia Plan: GA with mask Total IV Anesthesia: Yes
--- NOTE | 2018-08-11 09:22 | CPEKG ---
Test Reason : OPEN Blood Pressure : / mmHG Vent. Rate : 067 BPM Atrial Rate : 073 BPM P-R Int : 196 ms QRS Dur : 102 ms QT Int : 456 ms P-R-T Axes : 000 -38 033 degrees QTc Int : 482 ms Atrial fibrillation Left axis deviation Borderline prolonged QT interval Confirmed by Raf Sue ([id number]) on 08/11/2018 9:22:09 AM Referred By: Mg Bernard Confirmed By:Raf Sue
--- NOTE | 2018-08-11 09:55 | PDTEE1 ---
RAMONE Cardioversion Procedure Procedure: electrical cardioversion, transesophageal echo Indications: atrial fibrillation Consent: signed and in chart Anticoagulation: warfarin Procedural Details: Pads were placed in anterior-posterior position. RMAONE probe was advanced and standard images obtained. There is no evidence of left atrial or left atrial appendage thrombus. Synchronized cardioversion attempt #1: 200J Results: normal sinus rhythm Conclusions: successful cardioversion Patient Problems: Problems Problem Status Onset Atrial fibrillation Acute Osteoarthritis of left knee Acute
--- NOTE | 2018-08-13 10:36 | CPEKG ---
Test Reason : OPEN Blood Pressure : / mmHG Vent. Rate : 050 BPM Atrial Rate : 050 BPM P-R Int : 228 ms QRS Dur : 099 ms QT Int : 505 ms P-R-T Axes : 000 -38 015 degrees QTc Int : 461 ms Sinus rhythm Prolonged WV interval Left atrial enlargement Left axis deviation Confirmed by Raf Sue ([id number]) on 08/13/2018 10:35:36 AM Referred By: Mg Bernard Confirmed By:Raf Sue
== END 2018-08-11 11:12 | disposition home or self-care (01) ==
LOC: FCATH 07:40
PROVIDERS: ATTEND Internal Medicine Interventional Cardiology
DX: I48.0 Paroxysmal atrial fibrillation (principal); I25.10 Atherosclerotic heart disease of native coronary artery without angina pectoris; G47.33 Obstructive sleep apnea (adult) (pediatric); K21.9 Gastro-esophageal reflux disease without esophagitis; E78.5 Hyperlipidemia, unspecified; I34.1 Nonrheumatic mitral (valve) prolapse; Z79.01 Long term (current) use of anticoagulants; Z79.899 Other long term (current) drug therapy; Z87.891 Personal history of nicotine dependence; Z82.49 Family history of ischemic heart disease and other diseases of the circulatory system; Z96.651 Presence of right artificial knee joint; Z88.0 Allergy status to penicillin
CPT/HCPCS: J2704